=== PATIENT | female | born 1935 | race Two or more races ===

== ENCOUNTER 2025-07-20 15:38 | Emergency (ER) | payer OTHER ==
[~2025-07-20] VITALS: Ht 154.9 cm; Wt 53.5 kg
[2025-07-20] MEDS ORDERED: AVAPRO300 MG (15:51)
[2025-07-20] MEDS ORDERED: ELIQUIS2.5 MG (15:51)
[2025-07-20] MEDS ORDERED: TRIJARDY XR 251 EACH (15:51)
[2025-07-20] MEDS ORDERED: HYDROCHLOROTHIA25 MG (15:51)
[2025-07-20] MEDS ORDERED: PLAVIX75 MG (15:52)
[2025-07-20] MEDS ORDERED: ATORVASTATIN CA10 MG (15:52)
[2025-07-20] MEDS ORDERED: ISOSORBIDE DINI30 MG (15:52)
[2025-07-20] MEDS ORDERED: DOXAZOSIN MESYLA4 MG (15:53)
[2025-07-20] MEDS ORDERED: IRON325 MG (15:53)
[2025-07-20] MEDS ORDERED: MAGNESIUM OXID400 M1 (15:54)
[2025-07-20] MEDS ORDERED: TOPROL XL50 M1 (15:55)
[2025-07-20 17:41] LABS: BASO % 0.2 % (0.1-1.2); EOS # 0.52 (0.04-0.54); EOS % 5.3 % (0.7-7.0); LYMPH # 1.08 (1.18-3.74); LYMPH % 11.0 % (19.3-53.1); MEAN PLATELET VOLUME 11.20 fl (9.4-12.4); MONO # 0.56 (0.24-0.82); MONO % 5.7 % (4.7-12.5); NEUT # 7.62 (1.56-6.13); NEUT % 77.3 % (34.0-71.1); RED CELL DISTRIBUTION WIDTH 12.1 % (11.6-14.4)
[2025-07-20 18:16] LABS: ALT/SGPT 15.0 U/L (12-78); AST/SGOT 11.0 U/L (15-37); BILIRUBIN TOTAL 0.81 mg/dL (0.3-1.2); BUN CREA RATIO 18.0 (7.0-25.0); CREATININE SERUM 1.87 mg/dL (0.55-1.02); GFR 25.41; GLOBULINA 2.7 G/DL (2.4-3.5); GLUCOSE FASTING 176.0 mg/dL (65-100); LDH 199.0 U/L (84-246); OSMOLALITY SERUM 291.0 MOSM/KG (275-295); PHOSPHOKINASE CREATININE 24.0 U/L (26-192)
== END 2025-07-20 20:59 | disposition home or self-care (01) ==
LOC: ER 15:38
PROVIDERS: General Practice
DX: R55 Syncope and collapse (principal); R11.10 Vomiting, unspecified; I10 Essential (primary) hypertension; E11.9 Type 2 diabetes mellitus without complications; Z79.84 Long term (current) use of oral hypoglycemic drugs; Z91.013 Allergy to seafood